=== PATIENT | female | born 1950 | race Two or more races ===

== ENCOUNTER 2024-11-20 10:48 | Inpatient (IN) | payer OTHER ==
[~2024-11-20] VITALS: Ht 154.9 cm; Wt 49.0 kg
--- NOTE | 2024-11-20 11:32 | ED.PDOC ---
HPI (NEURO) HPI Comments This is a 74 year old female BIB son presenting to the ED with chief complaint of dizziness. Son reports that the patient has been experiencing dizziness since Sunday, worsening over time. Son relays that the patient called her PCP today and was advised to come to the ED to rule out CVA due to having previous history of 2 of them. Patient denies any numbness, weakness, tingling, headache, chest pain, SOB, or N/V at this time. Chief Complaint: Dizziness Time Seen by MD: 11:31 Reviewed Notes: Nurses Notes, Medications, Allergies Information Source: Patient Mode of Arrival: Ambulatory Severity: Moderate Dizziness/Weakness Severity: Unable to do activities Headache Severity: None Timing: Days Duration: Since onset Prehospital treatment: None Onset: At rest Circumstances: Spontaneous Symptoms: Vertigo After: Normal Mentation History of: CVA Modifying factors: Nothing Past Medical History PAST MEDICAL HISTORY: CVA (with left sided deficits), DM, High Lipids, HTN Surgical History: Denies all surgeries [facility] History: Denies all [facility]OSP[facility] Hx Family History Family History: Reviewed,noncontributory to illness Social History Smoker: Non-Smoker Alcohol: Denies ETOH Use Drugs: Denies Drug Use Lives In: Home Constitutional: denies: chills, diaphoresis, fatigue, fever, malaise, sweats, weakness, others EENTM: denies: blurred vision, double vision, ear bleeding, ear discharge, ear drainage, ear pain, ear ringing, eye pain, eye redness, hearing loss, mouth pain, mouth swelling, nasal discharge, nose bleeding, nose congestion, nose pain, photophobia, tearing, throat pain, throat swelling, voice changes, others Respiratory: denies: cough, hemoptysis, orthopnea, SOB at rest, shortness of breath, SOB with excertion, stridor, wheezing, others Cardiovascular: denies: chest pain, dizzy spells, diaphoresis, Dyspnea on exertion, edema, irregular heart beat, left arm pain, lightheadedness, palpitations, PND, syncope, others Gastrointestinal: denies: abdomen distended, abdominal pain, blood streaked bowels, constipated, diarrhea, dysphagia, difficulty swallowing, hematemesis, melena, nausea, poor appetite, poor fluid intake, rectal bleeding, rectal pain, vomiting, others Genitourinary: denies: abnormal vagina bleeding, burning, dyspareunia, dysuria, flank pain, frequency, hematuria, incontinence, pain, , vagina discharge, urgency, others Neurological: reports: dizziness; denies: fainting, headache, left sided numbness, left sided weakness, numbness, paresthesia, pre-existing deficit, right sided numbness, right sided weakness, seizure, speech problems, tingling, tremors, weakness, others Musculoskeletal: denies: back pain, gout, joint pain, joint swelling, muscle pain, muscle stiffness, neck pain, others Integumetry: denies: bruises, change in color, change in hair/nails, dryness, laceration, lesions, lumps, rash, wounds, others Allergic/Immunocompromised: denies: Difficulty Healing, Frequent Infections, Hives, Itching, others Hematologic/Lymphatic: denies: anemia, blood clots, easy bleeding, easy bruising, swollen glands, others Endocrine: denies: excessive hunger, excessive sweating, excessive thirst, excessive urination, flushing, intolerance to cold, intolerance to heat, unexplained weight gain, unexplained weight loss, others Psychiatric: denies: anxiety, bipolar disorder, depression, hopeless, panic disorder, schizophrenia, sleepless, suicidal, others All Other Systems: Reviewed and Negative Physical Exam General Appearance: Moderate Distress HEENT: Normal ENT Inspection, Pharynx Normal, TMs Normal Neck: Full Range of Motion, Non-Tender, Normal, Normal Inspection Respiratory: Chest Non-Tender, Lungs Clear, No Accessory Muscle Use, No Respiratory Distress, Normal Breath Sounds Cardiovascular: No Edema, No JVD, No Murmur, No Gallop, Normal Peripheral Pulses, Regular Rate/Rhythm Breast Exam: Deferred Gastrointestinal: No Organomegaly, Non Tender, No Pulsatile Mass, Normal Bowel Sounds, Soft Genitalia: Deferred Pelvic: Deferred Rectal: Deferred Extremities: No calf tenderness, Normal capillary refill, Normal inspection, Normal range of motion, Non-tender, No pedal edema Musculoskeletal : Apperance: Normal Neurologic: Alert, commercial photographer II-XII nml as Tested, Facial Droop (Left-sided facial droop but may be from previous CVA), No Motor Deficits, Normal Affect, Normal Mood, No Sensory Deficits Cerebellar Function: Normal Reflexes: Normal Skin: Dry, Normal Color, Warm Lymphatic: No Adenopathy EKG EKG : Pulse Rate (adult): 63 [place]: Normal Cardiac Rhythm: NSR Block: None ST: Nonsp Was a procedure done? Was a procedure done?: No Differential Diagnosis (SZ) Seizure: Alcohol Withdrawl, Closed Head Injury, CVA/TIA, Idiopathic, Meningitis, Syncope X-Ray, Labs, Meds, VS Vital Signs Date Time Temp Pulse Resp B/P (MAP) Pulse Ox O2 Delivery O2 Flow Rate FiO2 11/20/24 10:57 63 11/20/24 10:49 97.4 66 18 150/73 96 97.4 Lab Test 11/20/24 14:41 11/20/24 11:39 Range/Units Urine Color Light-yellow Yellow Urine Clarity Clear Clear Urine pH 6.0 5.0-9.0 Urine Specific [place] 1.013 1.001-1.035 Urine Protein Negative Negative Urine Ketones Trace Negative Urine Blood Negative Negative /uL Urine Nitrite Negative Negative Urine Bilirubin Negative Negative Urine Urobilinogen Normal Negative mg/dL Urine Leukocyte Esterase Negative Negative /uL Urine RBC 2 0 - 4 /hpf Urine Microscopic WBC < 1 0-5 /HPF Urine Squamous Epithelial Cells Few <5 /hpf Urine Bacteria None seen None Seen /hpf Urine Glucose Normal Normal mg/dL White Blood Count 5.9 4.4-10.8 10^3/uL Red Blood Count 4.52 4.0-5.20 10^6/uL Hemoglobin 14.0 12.2-16.2 g/dL Hematocrit 40.7 36.0-46.0 % Mean Corpuscular Volume 90.0 80.0-100.0 fL Mean Corpuscular Hemoglobin 30.9 28.0-32.0 pg Mean Corpuscular Hemoglobin Concent 34.4 32.0-36.0 g/dL Red Cell Distribution Width 12.5 11.8-14.3 % Platelet Count 255 140-450 10^3/uL Mean Platelet Volume 8.6 6.9-10.8 fL Neutrophils (%) (Auto) 61.5 37.0-80.0 % Lymphocytes (%) (Auto) 31.2 10.0-50.0 % Monocytes (%) (Auto) 6.2 0.0-12.0 % Eosinophils (%) (Auto) 0.7 0.0-7.0 % Basophils (%) (Auto) 0.4 0.0-2.0 % Neutrophils # (Auto) 3.6 1.6-8.6 10 ^3/uL Lymphocytes # (Auto) 1.8 0.4-5.4 10 ^3/uL Monocytes # (Auto) 0.4 0-1.3 10 ^3/uL Eosinophils # (Auto) 0 0-0.8 10 ^3/uL Basophils # (Auto) 0 0-0.2 10 ^3/uL Nucleated Red Blood Cells 0.1 % Sodium Level 145 136-145 mmol/L Potassium Level 3.3 L 3.5-5.1 mmol/L Chloride Level 107 98-107 mmol/L Carbon Dioxide Level 29 20-31 mmol/L Anion Gap 9 5-15 Blood Urea Nitrogen 6 L 9-23 mg/dL Creatinine 0.63 0.550-1.02 mg/dL Glomerular Filtration Rate Calc 94 >90 mL/min BUN/Creatinine Ratio 9.5 L 10.0-20.0 Serum Glucose 96 74-106 mg/dL Calcium Level 9.1 8.7-10.4 mg/dL CT Head indicates: 1. No CT evidence of an acute intracranial abnormality. IV Hep-Lock was established The urine test is negative The CBC and chemistry panel are within normal limits except for hypokalemia at 3.3 The patient is being admitted at this time. A neurology consult will be obtained Medical decision making was made because the patient is having persistent weak ness and numbness on the left side. The patient will be admitted at this time the Images Reviewed?: Images reviewed and evaluated by me Time of 1ST Reevaluation: 15:29 Reevaluation 1ST: Unchanged Patient Education/Counseling: Diagnosis, Treatment, Prognosis Family Education/Counseling: Diagnosis, Treatment, Prognosis Departure 1 Departure Time of Disposition: 15:28 Impression: Primary Impression: Left sided numbness Additional Impression: Autonomic dysfunction Disposition: 09 ADMITTED INPATIENT Admit to: Tele Condition: Fair Critical Care Note Critical Care Time?: Yes (55 min-critical care time only) Stability Stability form required: Yes Unstable for transfer: Telemetry monitoring (Telemetry monitoring required), ED Physician Assesment (Clinical assesment) Heart Score Heart Score: Heart Score Response (Comments) Value History N/A 0 EKG N/A 0 Age N/A 0 Risk Factors N/A 0 Troponin N/A 0 Total 0 I personally scribed for MILTON VALDOVINOS MD ([email or web address]) on 11/20/24 at 11:32. Electronically submitted by Isaías Alvares ([email or web address]). I personally scribed for MITLON VALDOVINOS MD ([email or web address]) on 11/20/24 at 12:43. Electronically submitted by Isaías Alvares ([email or web address]). MILTON VALDOVINOS MD Nov 20, 2024 11:32
[2024-11-20 12:10] LABS: Hematocrit 40.7 % (36.0-46.0); Hemoglobin 14.0 g/dL (12.2-16.2); Mean Corpuscular Hemoglobin 30.9 pg (28.0-32.0); Mean Corpuscular Volume 90.0 fL (80.0-100.0); Nucleated Red Blood Cells % 0.1 %
[2024-11-20 12:26] LABS: Sodium 145 mmol/L (136-145)
[2024-11-20 12:27] LABS: Anion Gap 9 (5-15); Calcium 9.1 mg/dL (8.7-10.4); Carbon Dioxide 29 mmol/L (20-31); Chloride 107 mmol/L (98-107); Potassium 3.3 mmol/L (3.5-5.1)
[2024-11-20 12:32] LABS: BUN/Creatinine Ratio 9.5 (10.0-20.0); Glucose 96 mg/dL (74-106)
[2024-11-20 12:34] LABS: Blood Urea Nitrogen 6 mg/dL (9-23)
--- NOTE | 2024-11-20 12:36 | DVH ---
EXAM: CT HEAD WITHOUT CONTRAST INDICATION: right sided weakness TECHNIQUE: CT images of the head were obtained without administration of IV contrast. CT scans at [facility] facility use dose modulation, iterative reconstruction, and/or weight based dosing when appropriate to reduce radiation dose to as low as reasonably achievable. COMPARISON: None FINDINGS: PARENCHYMA: No acute hemorrhage. There is no mass effect, midline shift, or herniation. There is pres ervation of the padilla white differentiation. Mild scattered hypoattenuation along the periventricular, centrum semiovale, and deep white matter tracts, which are nonspecific however statistically most li keith represent chronic microvascular ischemic change. VENTRICLES: No hydrocephalus. EXTRA-AXIAL SPACES: No extra-axial fluid collections. OTHER: The bony structures are intact. Visualized portions of the paranasal sinuses and mastoid air cells are clear. IMPRESSION: 1. No CT evidence of an acute intracranial abnormality.
--- NOTE | 2024-11-20 12:40 | ECG ---
[facility] Test Date: 2024-11-20 Test Time: 10:57:53 Pat Name: WINNIE ARMSTRONG Department: ED Room: [facility]T Gender: F Recreation Activities Coordinator: DR MCHUGH: 1950 Requested By: MILTON VALDOVINOS Order Number: [id number] Reading MD: José Siddiqui Measurements Intervals [place] Rate: 63 P: 36 OK: 194 QRS: 27 QRSD: 128 T: 25 QT: 441 QTc: 452 Interpretive Statements Sinus rhythm Nonspecific intraventricular conduction delay Electronically Signed On 11-25-2024 19:16:29 PDT by José Siddiqui Please click the below link to view image of tracing.
[2024-11-20 14:53] LABS: Urine Protein, UAD Negative (Negative)
[2024-11-20] MEDS ORDERED: MECLIZINE HCL 25 MG TAB PO PRN (16:15)
[2024-11-20] MEDS ORDERED: NITROGLYCERIN 0.4 MG SL TAB SL PRN (16:15)
[2024-11-20] MEDS ORDERED: DEXTROSE (50%) 50ML SYRG IV PRN (16:15)
--- NOTE | 2024-11-20 16:25 | DVHHP2 ---
History of Present Illness Reason for Visit: Dizziness History of Present Illness 74-year-old female past medical history stroke 10 years ago she has left facial droop and left-sided weakness which is chronic diabetes hyperlipidemia hypertension no surgical history she is here with the son she is Persian speaking her son spoke in her behalf Malachi [phone] chief complaint patient son states mom has some dizziness has been going on since Sunday it was worse today so she called her primary doctor and they requested that she come for evaluation to make sure she did not having mother stroke due to her symptoms patient states the dizziness comes and goes is worse when she is lying down or get from a sitting to a standing position she also complains of some nausea and she does have some chest pain on her left chest wall nothing makes her symptoms better moving mostly makes her symptoms worse she has no noticeable weakness per son the current weakness to her left side is from a stroke 10 years prior and also the facial droop was normal for her from her prior stroke. When evaluating patient's labs and imaging CBC was unremarkable potassium was 3.[address] scan of the brain was unremarkable with these findings we will admit patient for further workup and care ask for Neurology evaluation Past Medical History See HPI above Past Surgical History See HPI above Family History Reviewed, non-contributory to the management of this case. Past Social History The patient lives at home, denies smoking, alcohol or illicit drugs abuse. Review of Systems Constitutional: No: Fever, Chills, Sweats, Weakness, Malaise, Other Eyes: No: Pain, Vision change, Conjunctivae inflammation, Eyelid inflammation, Other, Redness ENT: No: Ear pain, Ear discharge, Nose pain, Nose discharge, Nose congestion, Mouth pain, Mouth swelling, Throat pain, Throat swelling, Other Respiratory: No: Cough, Dry, Shortness of breath, SOB with excertion, Wheezing, Hemoptysis, Pleuritic Pain, Sputum, Wheezing, Other Cardiovascular: No: Chest Pain, Palpitations, Orthopnea, Paroxysmal Noc. Dyspnea, Edema, Lt Headedness, Other Gastrointestinal: No: Nausea, Vomiting, Abdominal Pain, Diarrhea, Constipation, Melena, Hematochezia, Other Genitourinary: No Dysuria, No Frequency, No Incontinence, No Hematuria, No Retention, No Other Musculoskeletal: No: other, neck pain, shoulder pain, arm pain, back pain, hand pain, leg pain, foot pain Skin: No: Rash, Lesions, Jaundice, Bruising, Other Neurological: Other (Dizziness); No: Weakness, Numbness, Incoordination, Change in speech, Confusion, Seizures Allergies: Coded Allergies: NO KNOWN ALLERGIES (Unverified , 11/20/24) Exam Vital Signs Vital Signs Date Time Temp Pulse Resp B/P (MAP) Pulse Ox O2 Delivery O2 Flow Rate FiO2 11/20/24 15:32 63 11/20/24 10:49 97.4 18 150/73 96 97.4 General Appearance: Alert, Oriented X3, Cooperative, No acute distress HEENT: Atraumatic, Mucous membr. moist/pink, Other (Noticeable left facial droop son since normal for patient) Respiratory: Clear to auscultation, Normal air movement Cardiovascular: Regular rate, Normal S1, Normal S2, No murmurs Abdominal: Normal bowel sounds, Soft, No tenderness, No hepatospenomegaly, No masses Extremities: No clubbing, No cyanosis, No edema, Normal pulses, No tenderness/swelling Skin: No rashes, No breakdown, No significant lesion Neuro: Normal gait, Normal speech, Strength at 5/5 X4 ext, Normal tone, Se nsation intact, Other (Mild left-sided weakness likely from prior stroke) Psych/Mental Status: Mental status NL, Mood NL Labs/Xrays CT scan of the brain unremarkable I reviewed labs, imaging CT scan abdomen pelvis, EKG and all diagnostic studies on this patient from ED records and the medical chart Labs Test 11/20/24 14:41 11/20/24 11:39 Range/Units Urine Color Light-yellow Yellow Urine Clarity Clear Clear Urine pH 6.0 5.0-9.0 Urine Specific [place] 1.013 1.001-1.035 Urine Protein Negative Negative Urine Ketones Trace Negative Urine Blood Negative Negative /uL Urine Nitrite Negative Negative Urine Bilirubin Negative Negative Urine Urobilinogen Normal Negative mg/dL Urine Leukocyte Esterase Negative Negative /uL Urine RBC 2 0 - 4 /hpf Urine Microscopic WBC < 1 0-5 /HPF Urine Squamous Epithelial Cells Few <5 /hpf Urine Bacteria None seen None Seen /hpf Urine Glucose Normal Normal mg/dL White Blood Count 5.9 4.4-10.8 10^3/uL Red Blood Count 4.52 4.0-5.20 10^6/uL Hemoglobin 14.0 12.2-16.2 g/dL Hematocrit 40.7 36.0-46.0 % Mean Corpuscular Volume 90.0 80.0-100.0 fL Mean Corpuscular Hemoglobin 30.9 28.0-32.0 pg Mean Corpuscular Hemoglobin Concent 34.4 32.0-36.0 g/dL Red Cell Distribution Width 12.5 11.8-14.3 % Platelet Count 255 140-450 10^3/uL Mean Platelet Volume 8.6 6.9-10.8 fL Neutrophils (%) (Auto) 61.5 37.0-80.0 % Lymphocytes (%) (Auto) 31.2 10.0-50.0 % Monocytes (%) (Auto) 6.2 0.0-12.0 % Eosinophils (%) (Auto) 0.7 0.0-7.0 % Basophils (%) (Auto) 0.4 0.0-2.0 % Neutrophils # (Auto) 3.6 1.6-8.6 10 ^3/uL Lymphocytes # (Auto) 1.8 0.4-5.4 10 ^3/uL Monocytes # (Auto) 0.4 0-1.3 10 ^3/uL Eosinophils # (Auto) 0 0-0.8 10 ^3/uL Basophils # (Auto) 0 0-0.2 10 ^3/uL Nucleated Red Blood Cells 0.1 % Sodium Level 145 136-145 mmol/L Potassium Level 3.3 L 3.5-5.1 mmol/L Chloride Level 107 98-107 mmol/L Carbon Dioxide Level 29 20-31 mmol/L Anion Gap 9 5-15 Blood Urea Nitrogen 6 L 9-23 mg/dL Creatinine 0.63 0.550-1.02 mg/dL Glomerular Filtration Rate Calc 94 >90 mL/min BUN/Creatinine Ratio 9.5 L 10.0-20.0 Serum Glucose 96 74-106 mg/dL Calcium Level 9.1 8.7-10.4 mg/dL SEPSIS Sepsis Screen Date sepsis recognized/suspect: Nov 20, 2024 Time Sepsis recognized/suspect: 1050 Recent Procedure: No On Antibiotic Therapy: No Respiratory Rate >20: No Heart Rate >90: No Temp<36 C (96.8 F) or >38.3 C: No SBP <90 or MAP <65 mmHG: No New Acute Mental Status Change: No Is the patient on CPAP, BIPAP,: No Physician Orders Head Without Contrast (11/20/24 11:29) Vital Signs Date Time Temp Pulse Resp B/P (MAP) Pulse Ox O2 Delivery O2 Flow Rate FiO2 11/20/24 15:32 63 11/20/24 10:57 63 11/20/24 10:49 97.4 66 18 150/73 96 97.4 Laboratory Tests Test 11/20/24 11:39 White Blood Count 5.9 10^3/uL (4.4-10.8) Assessment/Plan Assessment/Plan Acute dizziness rule out stroke CT scan of the brain unremarkable Ordered neurology consult Stroke protocol and precautions PT OT eval and treat Cardiac diet con asa atorvastatin neuro checks q2h fall precautions oob to chair ordered Carotid Doppler study f/u results ordered Echo fu results Acute chest pain rule out ACS Order EKG follow up results Order troponin x3 follow up results Order aspirin and atorvastatin Order echocardiogram follow up results If abnormal consider Cards consult Order nitro and and morphine as needed for pain acute hypokalemia replete k ordered mag and phos fu results chronic problems cva left side facial droop and weakness dm ISS hld htn fen/ppx diet hl scd no gi ppx since no hx of gerds or gi bleed plan admit to tele cards consult fu results Plan discussed with: Patient Date of Service: Nov 20, 2024 Billing Provider: CARISSA BAIN DNP Common Visit Codes: [id number] INP/OBS CARE (HIGH) CARISSA BAIN DNP Nov 20, 2024 16:25
[2024-11-20 16:33] VITALS: PULSE 60; RESP 18; O2SAT 96
[2024-11-20] MEDS: InsuLIN REG 1unit/0.01ml Soln (100units/ml) SC SCH (17:00)
[2024-11-20] MEDS: ACCU-CHEK COMFORT CURVE STRIP VI SCH (17:00)
[2024-11-20 17:04] LABS: Magnesium 2.4 mg/dL (1.6-2.6)
[2024-11-20] MEDS: POTASSIUM EFFERVESENT TAB 25 MEQ PO ONE (17:05)
[2024-11-20 17:12] LABS: INR 0.94 (0.9-1.15); Prothrombin Time 10.0 sec (9.3-11.8)
--- NOTE | 2024-11-20 18:22 | DVH ---
CLINICAL HISTORY: eval for cardiac function and ef TECHNIQUE: Doll-scale, color and duplex doppler imaging of the bilateral carotid systems was performe d. COMPARISON: None Findings: Right carotid system: There is probable plaque present in the right carotid system. Left carotid system: There is plaque present in the left carotid system. The following flow velocities were obtained (Cm/sec). Right carotid System: ICA PSV: 147 Cm/sec ICA PDV: 41 Cm/sec ICA/CCA Ratio: 5.2 Left carotid System: ICA PSV: 84 Cm/sec ICA PDV: 28 Cm/sec ICA/CCA Ratio: 2.1 The right and left common carotid and external carotid arteries are patent. There is antegrade flow i n both vertebral arteries and external carotid arteries. IMPRESSION: 50-69% RIGHT ICA NARROWING. LESS THAN 50% LEFT ICA NARROWING. Estimation of carotid stenosis is based on velocity parameters that correlate the residual internal c arotid Diameter with that of the more distal vessel in accordance with the [place] symptomatic Carotid Endarterectomy trial (NASCET).
[2024-11-20] MEDS: SODIUM CHLORIDE 0.9% 1,000 ML IV SCH (18:31)
[2024-11-20] MEDS ORDERED: ASPI1TAB20 PO (23:39)
[2024-11-20] MEDS ORDERED: AML5T PO (23:39)
[2024-11-20] MEDS ORDERED: ATOR20TA50 PO (23:39)
[2024-11-21] VITALS (8 sets, daily range): BP systolic 100–152; BP diastolic 50–70; PULSE 55–68; RESP 16–17; TEMP 97.6–98.1; O2SAT 95–98
[2024-11-21] MEDS: ATORVASTATIN 20 MG TAB PO SCH (01:23)
--- NOTE | 2024-11-21 11:14 | DVHPN2 ---
Reviewed: Care Plan, H&P, Labs, Medications, Previous Orders, Radiology Changes from previous H/P or p: No Changes Eyes: No Pain, No Vision change, No Conjunctivae inflammation, No Eyelid inflammation, No Other, No Redness ENT: No Ear pain, No Ear discharge, No Nose pain, No Nose discharge, No Nose congestion, No Mouth pain, No Mouth swelling, No Throat pain, No Throat swelling, No Other Cardiovascular: No Chest Pain, No Palpitations, No Orthopnea, No Paroxysmal Noc. Dyspnea, No Edema, No Lt Headedness, No Other Respiratory: No Cough, No Dry, No Shortness of breath, No SOB with excertion, No Wheezing, No Hemoptysis, No Pleuritic Pain, No Sputum, No Other Gastrointestinal: No Nausea, No Vomiting, No Abdominal Pain, No Diarrhea, No Constipation, No Melena, No Hematochezia, No Other Genitourinary: No Dysuria, No Frequency, No Incontinence, No Hematuria, No Retention, No Other Musculoskeletal: No other, No neck pain, No shoulder pain, No arm pain, No back pain, No hand pain, No leg pain, No foot pain Skin: No Rash, No Lesions, No Jaundice, No Bruising, No Other Objective Vitals Vital Signs Date Time Temp Pulse Resp B/P (MAP) Pulse Ox O2 Delivery O2 Flow Rate FiO2 11/21/24 09:00 98.1 67 17 130/50 (76) 97 98.1 11/20/24 16:33 Room Air* 0 21 Intake/Output Intake and Output 11/21/24 07:00 Intake Total 0 ml Balance 0 ml Intake Oral 0 ml # Voids 3 Medications Current Medications Medications Dose Ordered Sig/Jaya Route Start Time Stop Time Status Last Admin Dose Admin Sodium Chloride 1,000 ml @ 70 mls/hr [id number] IV 11/20/24 16:15 11/21/24 06:27 70 MLS/HR Atorvastatin Calcium 20 mg HS PO 11/20/24 22:00 11/21/24 01:23 20 MG Aspirin 81 mg DAILY PO 11/21/24 10:00 Nitroglycerin 0.4 mg Q5MINP PRN SL 11/20/24 16:15 Meclizine HCl 25 mg Q8HPRN PRN PO 11/20/24 16:15 Diagnostic Test (Pha) 1 strip ACHS 11/20/24 17:00 11/21/24 06:27 1 STRIP Insulin Human Regular ACHS SC 11/20/24 17:00 Dextrose 50 ml UD PRN IV 11/20/24 16:15 Laboratory Results Laboratory Tests 11/20/24 11:39 Chemistry Test 11/20/24 11:39 Calcium Level 9.1 mg/dL (8.7-10.4) Magnesium Level 2.4 mg/dL (1.6-2.6) Phosphorus Level 2.9 mg/dL (2.4-5.1) Coagulation Test 11/20/24 11:39 Prothrombin Time 10.0 sec (9.3-11.8) Prothrombin Time INR 0.94 (0.9-1.15) Urinalysis Test 11/20/24 14:41 Urine Color Light-yellow (Yellow) Urine Clarity Clear (Clear) Urine pH 6.0 (5.0-9.0) Urine Specific [place] 1.013 (1.001-1.035) Urine Protein Negative (Negative) Urine Ketones Trace (Negative) Urine Blood Negative /uL (Negative) Urine Nitrite Negative (Negative) Urine Bilirubin Negative (Negative) Urine Urobilinogen Normal mg/dL (Negative) Urine Leukocyte Esterase Negative /uL (Negative) Urine RBC 2 /hpf (0 - 4) Urine Microscopic WBC < 1 /HPF (0-5) Urine Squamous Epithelial Cells Few /hpf (<5) Urine Bacteria None seen /hpf (None Seen) Urine Glucose Normal mg/dL (Normal) Labs and/or images reviewed: Labs reviewed by me, Image(s) reviewed by me Assessment/Plan Assessment/Plan Acute dizziness ruled out stroke: Neurology consult Acute chest pain rule out coronary artery disease Acute hypokalemia replace potassium History of CVA 10 years ago left-sided hemiplegia Diabetes Hypertension Hypercholesterolemia CT head negative 50-69 % right ICA stenosis: Cardiology consult Time Spent 55 minutes Advanced Care planning time 20 mts Patient is full code Plan discussed with: Patient Date of Service: Nov 21, 2024 Billing Provider: EDUARDO CESPEDES MD Common Visit Codes: [id number] INP/OBS CARE(HIGH) Secondary Visit Codes: [id number] CARE PLAN 30 MINUTES EDUARDO CESPEDES MD Nov 21, 2024 11:14
--- NOTE | 2024-11-21 12:57 | DVHINCON2 ---
Date Seen: Nov 21, 2024 Referring Physician MD Sameer Reason for Consultation 50-69% stenosis of right ICA History of Present Illness This is a Bengali speaking 74-year-old female patient who presents to the emergency room with chief complaint of dizziness for one week. The patient is primarily Bengali speaking and a alternative energy technician was used to interpret (ID [id number]). The patient reports symptoms began approximately one week ago. The patient reports a previous history of CVA which prompted her to come to the emergency room for further evaluation. She denies any syncopal episodes. Initial twelve lead electrocardiogram reveals normal sinus rhythm. Serial troponin levels have been negative. The patient denies any cardiac symptoms. Significant past medical history includes hypertension, dyslipidemia, CVA x2 with left-sided deficit, Beltrán's palsy, and hard of hearing. 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 Merchant in [place], [place]. Past Medical History Past medical history reviewed. No other significant than mentioned above. Past Surgical History Denies any previous surgeries Family History: Patient reports no known family medical history. Family History Family history reviewed. Social History Denies the use of tobacco, alcohol or illicit drugs. Allergies: Coded Allergies: NO KNOWN ALLERGIES (Unverified , 11/20/24) Home Meds Reported Medications Aspirin (Aspir-81) 81 Mg Tab, 1 TAB PO DAILY, #30 TAB 5 Refills 11/20/24 Amlodipine Besylate (NORVASC TABLET) 5 Mg Tb, 1 TAB PO DAILY, #30 TAB 5 Refills 11/20/24 Atorvastatin Calcium (ATORVASTATIN CALCIUM) 20 Mg Tab, 1 TAB PO DAILY, #30 TAB 5 Refills 11/20/24 Home Meds Home medications reviewed. Current Medications Current Medications Medications (Trade) Dose Ordered Sig/Jaya Route PRN Reason Start Time Stop Time Status Last Admin Sodium Chloride 1,000 ml @ 70 mls/hr [id number] IV 11/20/24 16:15 11/21/24 06:27 Atorvastatin Calcium (Lipitor) 20 mg HS PO 11/20/24 22:00 11/21/24 01:23 Aspirin 81 mg DAILY PO 11/21/24 10:00 11/21/24 11:36 Nitroglycerin (Ntrostat Sublingual) 0.4 mg Q5MINP PRN SL FOR CHEST PAIN 11/20/24 16:15 Meclizine HCl (Antivert Tablet) 25 mg Q8HPRN PRN PO DIZZINESS 11/20/24 16:15 Diagnostic Test (Pha) (Accu-Chek Comfort Curve T) 1 strip ACHS 11/20/24 17:00 11/21/24 11:39 Insulin Human Regular (InsuLIN R) ACHS SC 11/20/24 17:00 Dextrose 50 ml UD PRN IV Blood Sugar LESS THAN 60 11/20/24 16:15 Review of Systems Constitutional: No symptom reported Ears, Nose, & Throat: No symptom reported Eyes: No symptom reported Neurological: Dizziness Pulmonary/Respiratory: No symptoms reported Cardiovascular: No symptom reported Gastrointestinal: No symptom reported Genitourinary: No symptom reported Musculoskeletal: No symptom reported Skin: No symptom reported Psychiatric: No symptom reported Endocrine: No symptom reported Hematologic/Lymphatic: No symptom reported Vital Signs Vital Signs Date Time Temp Pulse Resp B/P (MAP) Pulse Ox O2 Delivery O2 Flow Rate FiO2 11/21/24 09:00 98.1 67 17 130/50 (76) 97 98.1 11/20/24 16:33 Room Air* 0 21 Physical Exam General Appearance: Cooperative. Well-developed. Well-nourished. No acute distress. Pulmonary/Respiratory: Clear, bilateral breaths sounds. Cardiovascular/Chest: Regular rate and rhythm. Peripheral Pulses: 2+ Radial (R). 2+ Radial (L). 2+ Pedal (R). 2+ Pedal (L) Abdominal Exam: Normal bowel sounds. Ankle Exam: Negative ankle edema Lower extremities: Negative lower extremity edema Neuro/Mental Status: A/OX4, coherent. Thoughts/Psych: Normal thought pattern. Appropriate mood and affect. Good j udgment and insight. Appearance: No acute distress. Skin Exam: Normal inspection. Normal color. Warm and dry. Labs/Diagnostic Data Labs Test 11/21/24 06:26 11/20/24 20:17 11/20/24 14:41 11/20/24 11:39 Range/Units POC Glucose 89 70-106 mg/dl Troponin I High Sensitivity 3 L </=34 ng/L Urine Color Light-yellow Yellow Urine Clarity Clear Clear Urine pH 6.0 5.0-9.0 Urine Specific [place] 1.013 1.001-1.035 Urine Protein Negative Negative Urine Ketones Trace Negative Urine Blood Negative Negative /uL Urine Nitrite Negative Negative Urine Bilirubin Negative Negative Urine Urobilinogen Normal Negative mg/dL Urine Leukocyte Esterase Negative Negative /uL Urine RBC 2 0 - 4 /hpf Urine Microscopic WBC < 1 0-5 /HPF Urine Squamous Epithelial Cells Few <5 /hpf Urine Bacteria None seen None Seen /hpf Urine Glucose Normal Normal mg/dL White Blood Count 5.9 4.4-10.8 10^3/uL Red Blood Count 4.52 4.0-5.20 10^6/uL Hemoglobin 14.0 12.2-16.2 g/dL Hematocrit 40.7 36.0-46.0 % Mean Corpuscular Volume 90.0 80.0-100.0 fL Mean Corpuscular Hemoglobin 30.9 28.0-32.0 pg Mean Corpuscular Hemoglobin Concent 34.4 32.0-36.0 g/dL Red Cell Distribution Width 12.5 11.8-14.3 % Platelet Count 255 140-450 10^3/uL Mean Platelet Volume 8.6 6.9-10.8 fL Neutrophils (%) (Auto) 61.5 37.0-80.0 % Lymphocytes (%) (Auto) 31.2 10.0-50.0 % Monocytes (%) (Auto) 6.2 0.0-12.0 % Eosinophils (%) (Auto) 0.7 0.0-7.0 % Basophils (%) (Auto) 0.4 0.0-2.0 % Neutrophils # (Auto) 3.6 1.6-8.6 10 ^3/uL Lymphocytes # (Auto) 1.8 0.4-5.4 10 ^3/uL Monocytes # (Auto) 0.4 0-1.3 10 ^3/uL Eosinophils # (Auto) 0 0-0.8 10 ^3/uL Basophils # (Auto) 0 0-0.2 10 ^3/uL Nucleated Red Blood Cells 0.1 % Prothrombin Time 10.0 9.3-11.8 sec Prothrombin Time INR 0.94 0.9-1.15 Sodium Level 145 136-145 mmol/L Potassium Level 3.3 L 3.5-5.1 mmol/L Chloride Level 107 98-107 mmol/L Carbon Dioxide Level 29 20-31 mmol/L Anion Gap 9 5-15 Blood Urea Nitrogen 6 L 9-23 mg/dL Creatinine 0.63 0.550-1.02 mg/dL Glomerular Filtration Rate Calc 94 >90 mL/min BUN/Creatinine Ratio 9.5 L 10.0-20.0 Serum Glucose 96 74-106 mg/dL Calcium Level 9.1 8.7-10.4 mg/dL Phosphorus Level 2.9 2.4-5.1 mg/dL Magnesium Level 2.4 1.6-2.6 mg/dL Assessment Right ICA narrowing 50-69% Rule out structural heart disease Vertigo, rule out TIA vs CVA Hypertension Dyslipidemia Hypokalemia 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 Siddiqui): Case discussed with Dr. Siddiqui. Carotid Doppler imaging reviewed. Patient noted to have 50-69% right ICA narrowing. Currently pending neurological consultation to assess for TIA versus CVA. In the setting of acute CVA, it is recommended to postpone carotid intervention for at least one month. At this time narrowing is less than 70%, no urgent indication for carotid angioplasty. Continue with lipid-lowering agent and single antiplatelet therapy. Continue with blood p ressure control and close cardiac surveillance. Further recommendations per clinical course and progression. Thank you for allowing us to care for this patient. Please call with any questions or concerns. Critical care time spent: 44 minutes This medical document was created using an electronic medical record system with voice recognition software and computerized dictation system. Although this document has been carefully reviewed, there might still be some phonetic and typographical errors. Occasional wrong-word or ``sound-alike substitutions may have occurred due to the inherent limitations of voice recognition software. These areas are purely typographical due to imperfections of the software programs and do not reflect any compromise in the patient's medical care. Please read the chart carefully and recognize, using context, where these substitutions have occurred. Plan discussed with: Patient, Spouse NYHA Physical activity limitations: NA Date of Service: Nov 21, 2024 Billing Provider: SILKE ROD Cardiology Common Codes: [id number] INP/OBS CARE (High) Cardiology Consultation Codes: [id number] CONSULT <45MIN SILKE ROD Nov 21, 2024 12:56
[2024-11-21 13:39] LABS: Triglycerides 80.0 mg/dL (< 150)
[2024-11-21 13:40] LABS: Magnesium 2.5 mg/dL (1.6-2.6)
[2024-11-21 13:41] LABS: Cholesterol 120.0 mg/dL (< 200); HDL Cholesterol 53.0 mg/dL (40-59)
[2024-11-22] VITALS (9 sets, daily range): BP systolic 111–130; BP diastolic 61–75; PULSE 56–71; RESP 16–18; TEMP 97.6–98; O2SAT 95–100
--- NOTE | 2024-11-22 10:37 | DVHPN2 ---
Reviewed: Care Plan, H&P, Labs, Medications, Previous Orders, Radiology Changes from previous H/P or p: No Changes Eyes: No Pain, No Vision change, No Conjunctivae inflammation, No Eyelid inflammation, No Other, No Redness ENT: No Ear pain, No Ear discharge, No Nose pain, No Nose discharge, No Nose congestion, No Mouth pain, No Mouth swelling, No Throat pain, No Throat swelling, No Other Cardiovascular: No Chest Pain, No Palpitations, No Orthopnea, No Paroxysmal Noc. Dyspnea, No Edema, No Lt Headedness, No Other Respiratory: No Cough, No Dry, No Shortness of breath, No SOB with excertion, No Wheezing, No Hemoptysis, No Pleuritic Pain, No Sputum, No Other Gastrointestinal: No Nausea, No Vomiting, No Abdominal Pain, No Diarrhea, No Constipation, No Melena, No Hematochezia, No Other Genitourinary: No Dysuria, No Frequency, No Incontinence, No Hematuria, No Retention, No Other Musculoskeletal: No other, No neck pain, No shoulder pain, No arm pain, No back pain, No hand pain, No leg pain, No foot pain Skin: No Rash, No Lesions, No Jaundice, No Bruising, No Other Objective Vitals Vital Signs Date Time Temp Pulse Resp B/P (MAP) Pulse Ox O2 Delivery O2 Flow Rate FiO2 11/22/24 08:15 Room Air* 0 21 11/22/24 08:05 97.9 61 17 121/75 (90) 97 97.9 Intake/Output Intake and Output 11/22/24 07:00 Intake Total 1000 ml Balance 1000 ml Intake Oral 1000 ml # Voids 3 # Bowel Movements 1 Medications Current Medications Medications Dose Ordered Sig/Jaya Route Start Time Stop Time Status Last Admin Dose Admin Sodium Chloride 1,000 ml @ 70 mls/hr [id number] IV 11/20/24 16:15 11/21/24 21:01 70 MLS/HR Atorvastatin Calcium 20 mg HS PO 11/20/24 22:00 11/21/24 21:01 20 MG Aspirin 81 mg DAILY PO 11/21/24 10:00 11/22/24 10:23 81 MG Nitroglycerin 0.4 mg Q5MINP PRN SL 11/20/24 16:15 Meclizine HCl 25 mg Q8HPRN PRN PO 11/20/24 16:15 Diagnostic Test (Pha) 1 strip ACHS 11/20/24 17:00 11/22/24 05:58 1 STRIP Insulin Human Regular ACHS SC 11/20/24 17:00 Dextrose 50 ml UD PRN IV 11/20/24 16:15 Laboratory Results Laboratory Tests 11/20/24 11:39 Chemistry Test 11/21/24 13:07 Magnesium Level 2.5 mg/dL (1.6-2.6) Lipid panel Test 11/21/24 13:07 Cholesterol Level 120 mg/dL (< 200) HDL Cholesterol 53 mg/dL (40-59) Triglycerides Level 80 mg/dL (< 150) HgA1c, TSH Test 11/21/24 13:07 Hemoglobin A1c 5.4 % A1C (<5.7) Thyroid Stimulating Hormone (TSH) 1.51 uIU/mL (0.55-4.78) Urinalysis Test 11/20/24 14:41 Urine Color Light-yellow (Yellow) Urine Clarity Clear (Clear) Urine pH 6.0 (5.0-9.0) Urine Specific [place] 1.013 (1.001-1.035) Urine Protein Negative (Negative) Urine Ketones Trace (Negative) Urine Blood Negative /uL (Negative) Urine Nitrite Negative (Negative) Urine Bilirubin Negative (Negative) Urine Urobilinogen Normal mg/dL (Negative) Urine Leukocyte Esterase Negative /uL (Negative) Urine RBC 2 /hpf (0 - 4) Urine Microscopic WBC < 1 /HPF (0-5) Urine Squamous Epithelial Cells Few /hpf (<5) Urine Bacteria None seen /hpf (None Seen) Urine Glucose Normal mg/dL (Normal) Labs and/or images reviewed: Labs reviewed by me, Image(s) reviewed by me Assessment/Plan Assessment/Plan Acute dizziness rule out stroke versus TIA: Neurology consult for Dr. Briggs pending Acute chest pain rule out coronary artery disease Acute hypokalemia replace potassium History of CVA 10 years ago left-sided hemiplegia Diabetes Hypertension Hypercholesterolemia CT head negative 50-69 % right ICA stenosis: Cardiology consult Dr. Siddiqui appreciated, advised conservative management in the setting of possible TIA/ CVA Time Spent 55 minutes Advanced Care planning time 20 mts Patient is full code Plan discussed with: Patient My Orders Orders - EDUARDO CESPEDES MD Procedure Category Date Status Time * Cardiology Consult CONS 11/21/24 Transmitted 11:22 Date of Service: Nov 22, 2024 Billing Provider: EDUARDO CESPEDES MD Common Visit Codes: [id number] INP/OBS CARE(HIGH) EDUARDO CESPEDES MD Nov 22, 2024 10:37
[2024-11-23] VITALS (8 sets, daily range): BP systolic 116–144; BP diastolic 49–78; PULSE 55–66; RESP 12–20; TEMP 97.7–98.2; O2SAT 92–98
--- NOTE | 2024-11-23 12:20 | DVHPN2 ---
Reviewed: Care Plan, H&P, Labs, Medications, Previous Orders, Radiology Changes from previous H/P or p: No Changes Eyes: No Pain, No Vision change, No Conjunctivae inflammation, No Eyelid inflammation, No Other, No Redness ENT: No Ear pain, No Ear discharge, No Nose pain, No Nose discharge, No Nose congestion, No Mouth pain, No Mouth swelling, No Throat pain, No Throat swelling, No Other Cardiovascular: No Chest Pain, No Palpitations, No Orthopnea, No Paroxysmal Noc. Dyspnea, No Edema, No Lt Headedness, No Other Respiratory: No Cough, No Dry, No Shortness of breath, No SOB with excertion, No Wheezing, No Hemoptysis, No Pleuritic Pain, No Sputum, No Other Gastrointestinal: No Nausea, No Vomiting, No Abdominal Pain, No Diarrhea, No Constipation, No Melena, No Hematochezia, No Other Genitourinary: No Dysuria, No Frequency, No Incontinence, No Hematuria, No Retention, No Other Musculoskeletal: No other, No neck pain, No shoulder pain, No arm pain, No back pain, No hand pain, No leg pain, No foot pain Skin: No Rash, No Lesions, No Jaundice, No Bruising, No Other Objective Vitals Vital Signs Date Time Temp Pulse Resp B/P (MAP) Pulse Ox O2 Delivery O2 Flow Rate FiO2 11/23/24 08:47 97.8 63 20 130/67 (88) 97 97.8 11/23/24 08:11 Room Air* 0 21 Intake/Output Intake and Output 11/23/24 07:00 Intake Total 1350 ml Output Total 1000 ml Balance 350 ml Intake Oral 1350 ml Output Urine Total 1000 ml # Bowel Movements 2 Medications Current Medications Medications Dose Ordered Sig/Jaya Route Start Time Stop Time Status Last Admin Dose Admin Sodium Chloride 1,000 ml @ 70 mls/hr [id number] IV 11/20/24 16:15 11/23/24 01:27 70 MLS/HR Atorvastatin Calcium 20 mg HS PO 11/20/24 22:00 11/22/24 21:02 20 MG Aspirin 81 mg DAILY PO 11/21/24 10:00 11/23/24 10:39 81 MG Nitroglycerin 0.4 mg Q5MINP PRN SL 11/20/24 16:15 Meclizine HCl 25 mg Q8HPRN PRN PO 11/20/24 16:15 Diagnostic Test (Pha) 1 strip ACHS 11/20/24 17:00 11/23/24 11:30 1 STRIP Insulin Human Regular ACHS SC 11/20/24 17:00 Dextrose 50 ml UD PRN IV 11/20/24 16:15 Laboratory Results Laboratory Tests 11/20/24 11:39 Urinalysis Test 11/20/24 14:41 Urine Color Light-yellow (Yellow) Urine Clarity Clear (Clear) Urine pH 6.0 (5.0-9.0) Urine Specific [place] 1.013 (1.001-1.035) Urine Protein Negative (Negative) Urine Ketones Trace (Negative) Urine Blood Negative /uL (Negative) Urine Nitrite Negative (Negative) Urine Bilirubin Negative (Negative) Urine Urobilinogen Normal mg/dL (Negative) Urine Leukocyte Esterase Negative /uL (Negative) Urine RBC 2 /hpf (0 - 4) Urine Microscopic WBC < 1 /HPF (0-5) Urine Squamous Epithelial Cells Few /hpf (<5) Urine Bacteria None seen /hpf (None Seen) Urine Glucose Normal mg/dL (Normal) Labs and/or images reviewed: Labs reviewed by me, Image(s) reviewed by me Assessment/Plan Assessment/Plan Acute dizziness rule out stroke versus TIA: Neurology consult for Dr. Briggs pending Acute chest pain rule out coronary artery disease Acute hypokalemia replace potassium History of CVA 10 years ago left-sided hemiplegia Diabetes Hypertension Hypercholesterolemia CT head negative 50-69 % right ICA stenosis: Cardiology consult Dr. Siddiqui appreciated, advised conservative management in the setting of possible TIA/ CVA Time Spent 55 minutes Advanced Care planning time 20 mts Patient is full code Awaiting Neurology consultation Plan discussed with: Patient Date of Service: Nov 23, 2024 Billing Provider: EDUARDO CESPEDES MD Common Visit Codes: [id number] INP/OBS CARE(HIGH) EDUARDO CESPEDES MD Nov 23, 2024 12:19
--- NOTE | 2024-11-23 16:19 | DVHSR ---
APPROVED REPORT EXAM: Two-dimensional and M-mode echocardiogram with Doppler and color Doppler. Blood Pressure: 130/50 mmHg INDICATION Evaluate cardiac function RISK FACTORS Height: 5' 1", Weight: 108 DIMENSIONS LVDd4.3 (3.8-5.7cm)LA (2D)3.3 (1.9-4.0cm)Aortic Root2.8 (2.0-3.7cm) LVDs2.9 (2.5-4.0cm)LA (MM) (1.9-4.0cm)Aortic Cusp Exc1.6 (1.5-2.0cm) EF (%) 60.0 (55-70%)Rt. Atrium3.1 (1.9-4.0cm)Asc. Aorta cm IVSd0.8 (0.7-1.1cm)RV (D) (1.8-2.4cm) PWd0.8 (0.7-1.1cm) Mitral Valve MitralMitral Stenosis E wave0.60m/sMV Mean GR.mmHg A wave0.90m/sMV Peak GR.mmHg E/A ratio0.72D MVAcm2 Aortic Valve Aortic ValveAortic Stenosis V10.90m/Jong Mean GR.6mmHg V21.70m/Jong Peak GR.12mmHg LVOT Diameter2.0 (1.8-2.4cm)Doppler AVA1.66cm2 AI P 1/2 Xroe767.66ms Pulmonic Valve V20.70m/s Tricuspid Valve TR Velocity2.30m/s [id number] Conclusion Technically good study sinus rhythm. Normal chamber sizes. Valves are normal. EF of 60% with normal RV function. Mild AI. Mild TR. No pericardial effusion masses or vegetations.
--- NOTE | 2024-11-23 22:34 | DVHINCON2 ---
Date of service: Nov 23, 2024 Referring Physician Rach Meyers for Consultation Evaluation for acute dizziness with history of stroke History of Present Illness Ms. Gibson is a 74 years old right-handed female with a history of hypertension, dyslipidemia, chronic stroke with residual left-sided weakness me, she came [facility] on 11[facility]/2024 with a complaint of dizziness, at that time, she is alert, fully oriented, with her son's interpretation, she provided the following history Since 11/17/2024, the patient has progressive intermittent dizziness, where she has unsteadiness, spinning sensation, mild nausea no matter when he is still in bed, sitting, standing or walking, the symptoms persist for 1 hour longer, and happened a few times a day, she has general weakness but denies associated focal weakness numbness, she has not had similar problems previously Fifteen years ago, the patient developed left-sided weakness, and she was said to have stroke, at home she takes aspirin 81 mg daily, and the cholesterol medication, according to our record, Lipitor 20 mg daily CBC, 11/20/2024: Unremarkable BMP, 11/20/2024: Unremarkable HGB A1c, 11/21/2024: 5.4 TG/HDL/LDL/HDL, 11/21/2024: 80/120/55/53 TSH, 11/21/2024: 1.51 Carotid Doppler, 11/20/24: 50-69% RIGHT ICA NARROWING. LESS THAN 50% LEFT ICA NARROWING CT head, 11/20/2024: No CT evidence of an acute intracranial abnormality Past Medical History Hypertension, dyslipidemia, stroke with left-sided weakness Past Surgical History No surgeries Family History: Patient reports no known family medical history. Family History Cancer Social History She denies a history of tobacco smoking, drug or alcohol abuse Allergies: Coded Allergies: NO KNOWN ALLERGIES (Unverified , 11/20/24) Home Meds Reported Medications Aspirin (Aspir-81) 81 Mg Tab, 1 TAB PO DAILY, #30 TAB 5 Refills 11/20/24 Amlodipine Besylate (NORVASC TABLET) 5 Mg Tb, 1 TAB PO DAILY, #30 TAB 5 Refills 11/20/24 Atorvastatin Calcium (ATORVASTATIN CALCIUM) 20 Mg Tab, 1 TAB PO DAILY, #30 TAB 5 Refills 11/20/24 Review of Systems As above, the other systems are negative Vital Signs Vital Signs Date Time Temp Pulse Resp B/P (MAP) Pulse Ox O2 Delivery O2 Flow Rate FiO2 11/23/24 20:57 98.2 66 17 116/75 (89) 96 98.2 11/23/24 20:20 Room Air* 0 21 Physical Exam GENERAL EXAM: General: the patient is well developed and nourished. No acute distress. HEENT: Normocephalic, neck is supple, no carotid bruits. No mass. RESPIRATORY: Normal respiratory effort with symmetrical lung expansion. Lungs clear to auscultation. CARDIOVASCULAR: Regular rate and rhythm with no murmurs. S1, S2. ABDOMEN: Soft, nontender, normal bowel sound MUSCULOSKELETAL EXAM: Tenderness to palpation both shoulders NEUROLOGICAL: MENTAL STATUS: Awake and alert. Oriented to person, place, time and general circumstances. Able to give personal history. SPEECH, LANGUAGE, HIGHER CORTICAL FUNCTION: no aphasia or dysathria. CRANIAL NERVES: #2: Intact visual archer to confrontation. The optic discs were sharp. #3,4,6: Pupils are equal, round and reactive. EOMs full and conjugate.No nystagmus. #5: Facial sensation intact in all three divisions bilaterally. Mandibular strength intact. #7: Mild left facial weakness of upper motor neuron pattern #8: Hearing grossly normal to voice. #9,10: Uvula and soft palate rise in the midline. Swallow and voice are normal. #11: Trapezius and sternomastoid strength intact bilaterally. #12: Tongue midline. No fasciculations or atrophy. SENSATION: Sensation to touch and pinprick is normal. MOTOR: Normal tone in the upper and lower extremity. Normal muscle bulk. No fasciculations. No abnormal movements or posturing. Muscle strength of the major groups in the extremities is 5/5, the left extremities were weaker, there is left arm drift REFLEXES: Deep tendon reflexes are symmetrical. No pathological reflexes. CEREBELLAR/COORDINATION: Finger to nose is normal bilaterally. GAIT/STATION: deferred. Labs/Diagnostic Data Labs Test 11/23/24 21:34 11/21/24 13:07 11/20/24 20:17 11/20/24 14:41 Range/Units POC Glucose 96 70-106 mg/dl Hemoglobin A1c 5.4 <5.7 % A1C Magnesium Level 2.5 1.6-2.6 mg/dL Triglycerides Level 80 < 150 mg/dL Cholesterol Level 120 < 200 mg/dL LDL Cholesterol 55 < 100 mg/dL HDL Cholesterol 53 40-59 mg/dL Thyroid Stimulating Hormone (TSH) 1.51 0.55-4.78 uIU/mL Troponin I High Sensitivity 3 L </=34 ng/L Urine Color Light-yellow Yellow Urine Clarity Clear Clear Urine pH 6.0 5.0-9.0 Urine Specific [place] 1.013 1.001-1.035 Urine Protein Negative Negative Urine Ketones Trace Negative Urine Blood Negative Negative /uL Urine Nitrite Negative Negative Urine Bilirubin Negative Negative Urine Urobilinogen Normal Negative mg/dL Urine Leukocyte Esterase Negative Negative /uL Urine RBC 2 0 - 4 /hpf Urine Microscopic WBC < 1 0-5 /HPF Urine Squamous Epithelial Cells Few <5 /hpf Urine Bacteria None seen None Seen /hpf Urine Glucose Normal Normal mg/dL Test 11/20/24 11:39 Range/Units White Blood Count 5.9 4.4-10.8 10^3/uL Red Blood Count 4.52 4.0-5.20 10^6/uL Hemoglobin 14.0 12.2-16.2 g/dL Hematocrit 40.7 36.0-46.0 % Mean Corpuscular Volume 90.0 80.0-100.0 fL Mean Corpuscular Hemoglobin 30.9 28.0-32.0 pg Mean Corpuscular Hemoglobin Concent 34.4 32.0-36.0 g/dL Red Cell Distribution Width 12.5 11.8-14.3 % Platelet Count 255 140-450 10^3/uL Mean Platelet Volume 8.6 6.9-10.8 fL Neutrophils (%) (Auto) 61.5 37.0-80.0 % Lymphocytes (%) (Auto) 31.2 10.0-50.0 % Monocytes (%) (Auto) 6.2 0.0-12.0 % Eosinophils (%) (Auto) 0.7 0.0-7.0 % Basophils (%) (Auto) 0.4 0.0-2.0 % Neutrophils # (Auto) 3.6 1.6-8.6 10 ^3/uL Lymphocytes # (Auto) 1.8 0.4-5.4 10 ^3/uL Monocytes # (Auto) 0.4 0-1.3 10 ^3/uL Eosinophils # (Auto) 0 0-0.8 10 ^3/uL Basophils # (Auto) 0 0-0.2 10 ^3/uL Nucleated Red Blood Cells 0.1 % Prothrombin Time 10.0 9.3-11.8 sec Prothrombin Time INR 0.94 0.9-1.15 Sodium Level 145 136-145 mmol/L Potassium Level 3.3 L 3.5-5.1 mmol/L Chloride Level 107 98-107 mmol/L Carbon Dioxide Level 29 20-31 mmol/L Anion Gap 9 5-15 Blood Urea Nitrogen 6 L 9-23 mg/dL Creatinine 0.63 0.550-1.02 mg/dL Glomerular Filtration Rate Calc 94 >90 mL/min BUN/Creatinine Ratio 9.5 L 10.0-20.0 Serum Glucose 96 74-106 mg/dL Calcium Level 9.1 8.7-10.4 mg/dL Phosphorus Level 2.9 2.4-5.1 mg/dL Assessment Intermittent vertigo/unsteadiness ? Stroke/TIA Chronic stroke with residual left-sided weakness Plan/Recommendation Monitoring Supportive treatment Telemetry MRI head Aspirin 81 mg daily Lipitor 20 mg daily Up to chair Physical therapy This medical document was created using an electronic medical record system with [employer] dictation system. Although this document has been carefully reviewed, there may still be some phonetic and typographical errors. These areas are purely typographical due to imperfections of the software programs, and do not reflect any compromise in the patient's medical care. Plan discussed with: Patient, Son, Other CYNTHIA STEVENS MD Nov 23, 2024 22:34
[2024-11-23] MEDS ORDERED: LORazepam 2MG/ML-1ML VIAL IV PRN (23:15)
[2024-11-24] VITALS (8 sets, daily range): BP systolic 89–126; BP diastolic 49–78; PULSE 50–75; RESP 12–20; TEMP 97.6–98.9; O2SAT 95–97
--- NOTE | 2024-11-24 09:51 | DVH ---
EXAMINATION: MRI BRAIN HEAD WO CONTRAST INDICATION: CVA, vertigo COMPARISON: US CAROTID DUPLX W COLOR DOP on DOS: 11/20/24, CT HEAD WITHOUT CONTRAST on DOS: 11/20/24 TECHNIQUE: Multiplanar, multisequence magnetic resonance imaging of the brain was performed without the use of i ntravenous contrast. FINDINGS: No evidence of acute infarct. No intracranial hemorrhage. No mass effect. There is periventricular/deep white matter T2/FLAIR hyperintensity is nonspecific, but most commonly associated with chronic microvascular disease. The ventricles and sulci are normal in size for age. Clear basal cisterns. Flow voids in the major intracranial vessels are maintained. No abnormality of the orbits. Paranasal sinuses and mastoid air cells are clear. No abnormality of the visualized osseous structures and extracranial soft tissues. IMPRESSION: 1. No acute infarct, intracranial hemorrhage, mass effect, or hydrocephalus.
--- NOTE | 2024-11-24 13:38 | DVHPN2 ---
Reviewed: Care Plan, H&P, Labs, Medications, Previous Orders, Radiology Changes from previous H/P or p: No Changes Eyes: No Pain, No Vision change, No Conjunctivae inflammation, No Eyelid inflammation, No Other, No Redness ENT: No Ear pain, No Ear discharge, No Nose pain, No Nose discharge, No Nose congestion, No Mouth pain, No Mouth swelling, No Throat pain, No Throat swelling, No Other Cardiovascular: No Chest Pain, No Palpitations, No Orthopnea, No Paroxysmal Noc. Dyspnea, No Edema, No Lt Headedness, No Other Respiratory: No Cough, No Dry, No Shortness of breath, No SOB with excertion, No Wheezing, No Hemoptysis, No Pleuritic Pain, No Sputum, No Other Gastrointestinal: No Nausea, No Vomiting, No Abdominal Pain, No Diarrhea, No Constipation, No Melena, No Hematochezia, No Other Genitourinary: No Dysuria, No Frequency, No Incontinence, No Hematuria, No Retention, No Other Musculoskeletal: No other, No neck pain, No shoulder pain, No arm pain, No back pain, No hand pain, No leg pain, No foot pain Skin: No Rash, No Lesions, No Jaundice, No Bruising, No Other Objective Vitals Vital Signs Date Time Temp Pulse Resp B/P (MAP) Pulse Ox O2 Delivery O2 Flow Rate FiO2 11/24/24 09:00 98.1 68 12 126/69 (88) 96 98.1 11/23/24 20:20 Room Air* 0 21 Intake/Output Intake and Output 11/24/24 07:00 Intake Total 1270 ml Balance 1270 ml Intake Oral 640 ml IV Total 630 ml # Voids 9 Medications Current Medications Medications Dose Ordered Sig/Jaya Route Start Time Stop Time Status Last Admin Dose Admin Sodium Chloride 1,000 ml @ 70 mls/hr [id number] IV 11/20/24 16:15 11/24/24 04:43 70 MLS/HR Atorvastatin Calcium 20 mg HS PO 11/20/24 22:00 11/23/24 22:06 20 MG Aspirin 81 mg DAILY PO 11/21/24 10:00 11/24/24 09:53 81 MG Nitroglycerin 0.4 mg Q5MINP PRN SL 11/20/24 16:15 Meclizine HCl 25 mg Q8HPRN PRN PO 11/20/24 16:15 Diagnostic Test (Pha) 1 strip ACHS 11/20/24 17:00 11/24/24 11:30 1 STRIP Insulin Human Regular ACHS SC 11/20/24 17:00 Dextrose 50 ml UD PRN IV 11/20/24 16:15 Lorazepam 1 mg ONCE PRN IV 11/23/24 23:15 Laboratory Results Laboratory Tests 11/20/24 11:39 Urinalysis Test 11/20/24 14:41 Urine Color Light-yellow (Yellow) Urine Clarity Clear (Clear) Urine pH 6.0 (5.0-9.0) Urine Specific [place] 1.013 (1.001-1.035) Urine Protein Negative (Negative) Urine Ketones Trace (Negative) Urine Blood Negative /uL (Negative) Urine Nitrite Negative (Negative) Urine Bilirubin Negative (Negative) Urine Urobilinogen Normal mg/dL (Negative) Urine Leukocyte Esterase Negative /uL (Negative) Urine RBC 2 /hpf (0 - 4) Urine Microscopic WBC < 1 /HPF (0-5) Urine Squamous Epithelial Cells Few /hpf (<5) Urine Bacteria None seen /hpf (None Seen) Urine Glucose Normal mg/dL (Normal) Labs and/or images reviewed: Labs reviewed by me, Image(s) reviewed by me Assessment/Plan Assessment/Plan Acute dizziness rule out stroke versus TIA: Neurology consult for Dr. 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 Siddiqui appreciated, advised conservative management in the setting of possible TIA/ CVA Time Spent 55 minutes Advanced Care planning time 20 mts Patient is full code Possible discharge Tue Plan discussed with: Patient Date of Service: Nov 24, 2024 Billing Provider: EDUARDO CESPEDES MD Common Visit Codes: [id number] INP/OBS CARE(HIGH) EDUARDO CESPEDES MD Nov 24, 2024 13:38
--- NOTE | 2024-11-24 16:30 | DVHPN2 ---
Consult Progress Note Date Seen: Nov 24, 2024 Subjective Review of Systems: CVS:Normal, RESPIRATORY:Normal, NEURO:Normal Other Systems: Denies any neurological symptoms Objective vital signs Vital Sign Date Time Temp Pulse Resp B/P (MAP) Pulse Ox O2 Delivery O2 Flow Rate FiO2 11/24/24 13:00 98.4 75 16 117/66 (83) 96 98.4 11/24/24 08:10 Room Air* 0 21 Total Intake and Output 11/23/24 11/23/24 11/24/24 15:00 23:00 07:00 Intake Total 240 ml 1030 ml Balance 240 ml 1030 ml medications Current Medications Medications Dose Ordered Sig/Jaya Route Start Time Stop Time Status Last Admin Dose Admin Sodium Chloride 1,000 ml @ 70 mls/hr [id number] IV 11/20/24 16:15 11/24/24 04:43 70 MLS/HR Atorvastatin Calcium 20 mg HS PO 11/20/24 22:00 11/23/24 22:06 20 MG Aspirin 81 mg DAILY PO 11/21/24 10:00 11/24/24 09:53 81 MG Nitroglycerin 0.4 mg Q5MINP PRN SL 11/20/24 16:15 Meclizine HCl 25 mg Q8HPRN PRN PO 11/20/24 16:15 Diagnostic Test (Pha) 1 strip ACHS 11/20/24 17:00 11/24/24 11:30 1 STRIP Insulin Human Regular ACHS SC 11/20/24 17:00 Dextrose 50 ml UD PRN IV 11/20/24 16:15 Lorazepam 1 mg ONCE PRN IV 11/23/24 23:15 Examination: LUNGS:Normal, CVS:Normal, NEURO:Abnormal (Left facial droop. A&O x 3) laboratory and microbiology Laboratory Tests 11/20/24 11:39 Test 11/20/24 11:39 Range/Units Serum Glucose 96 74-106 mg/dL Problem List/Assessment/Plan Problem List/Assessment/Plan Right ICA narrowing 50-69%, moderate degree CVA x2 with left-sided deficit Acute CVA ruled out Vertigo Hypertension Dyslipidemia Hypokalemia History of Beltrán's palsy Hard of hearing Plan/Recommendation (Dr. Siddiqui) Transthoracic echocardiogram revealed LVEF 60% with normal RV function. Carotid Doppler imaging revealed 50-69% right ICA narrowing, moderate degree of stenosis. Continue lipid-lowering agent and single-antiplatelet therapy. Continue neurology recommendations. Consider blood work as inpatient. There is no further cardiac work-up indicated at this time. Kindly re-consult if necessary. Thank you for allowing us to care for this patient. This medical document was created using an electronic medical record system with voice recognition software and computerized dictation system. Although this document has been carefully reviewed, there might still be some phonetic and typographical errors. Occasional wrong-word or ``sound-alike substitutions may have occurred due to the inherent limitations of voice recognition software. These areas are purely typographical due to imperfections of the software programs and do not reflect any compromise in the patient's medical care. Please read the chart carefully and recognize, using context, where these substitutions have occurred. Plan discussed with: Patient, Other Dietary Evaluation Review Comments: continuw current care of plan monitor PO intake to meet 100% of her needs Expected Outcomes/Goals: maintained BW Date of Service: Nov 24, 2024 Billing Provider: NETTA BOWIE Cardiology Common Codes: [id number] HOSP CARE(High NETTA BOWIE Nov 24, 2024 16:30
[2024-11-24 17:56] LABS: Alanine Aminotransferase 19 U/L (7-40); Albumin 4.2 g/dL (3.2-4.8); Alkaline Phosphatase 101 U/L (46-116); Anion Gap 8 (5-15); BUN/Creatinine Ratio 13.4 (10.0-20.0); Blood Urea Nitrogen 9 mg/dL (9-23); Calcium 9.3 mg/dL (8.7-10.4); Carbon Dioxide 29 mmol/L (20-31); Chloride 107 mmol/L (98-107); Glucose 86 mg/dL (74-106); Potassium 4.4 mmol/L (3.5-5.1); Sodium 144 mmol/L (136-145); Total Protein 6.5 g/dL (5.7-8.2)
[2024-11-24 17:57] LABS: Bilirubin, Total 1.3 mg/dL (0.2-1.0)
[2024-11-24] MEDS: ATORVASTATIN 20 MG TAB PO SCH (21:26)
--- NOTE | 2024-11-24 23:13 | DVHPN2 ---
Progress Note - Dictate Date Seen: Nov 24, 2024 Medical Necessity Reason Pt with a Central, PICC or Fol: No Subjective Ms. Arthur is a 74 years old right-handed female with a history of hypertension, dyslipidemia, chronic stroke with residual left-sided weakness me, she came to the [facility] on 11/20/2024 with a complaint of dizziness I have seen examined the patient, I have talked to her nurse, she is doing fine, no new complaint, but still has dizziness/spinning sensation No change on physical examination at that time, she is alert, fully oriented, with her son's interpretation, she provided the following history CBC, 11/20/2024: Unremarkable BMP, 11/20/2024: Unremarkable HGB A1c, 11/21/2024: 5.4 TG/HDL/LDL/HDL, 11/21/2024: 80/120/55/53 TSH, 11/21/2024: 1.51 Carotid Doppler, 11/20/24: 50-69% RIGHT ICA NARROWING. LESS THAN 50% LEFT ICA NARROWING CT head, 11/20/2024: No CT evidence of an acute intracranial abnormality MRI head, 11/24/2024: No acute infarct, intracranial hemorrhage, mass effect, or hydrocephalus vital signs Vital Sign Date Time Temp Pulse Resp B/P (MAP) Pulse Ox O2 Delivery O2 Flow Rate FiO2 11/24/24 20:53 70 16 94/49 (64) 96 11/24/24 20:52 98.9 98.9 11/24/24 20:09 Room Air* 0 21 Total Intake and Output 11/23/24 11/23/24 11/24/24 15:00 23:00 07:00 Intake Total 240 ml 1030 ml Balance 240 ml 1030 ml medications Current Medications Medications Dose Ordered Sig/Jaya Route Start Time Stop Time Status Last Admin Dose Admin Sodium Chloride 1,000 ml @ 70 mls/hr [id number] IV 11/20/24 16:15 11/24/24 04:43 70 MLS/HR Aspirin 81 mg DAILY PO 11/21/24 10:00 11/24/24 09:53 81 MG Nitroglycerin 0.4 mg Q5MINP PRN SL 11/20/24 16:15 Meclizine HCl 25 mg Q8HPRN PRN PO 11/20/24 16:15 Diagnostic Test (Pha) 1 strip ACHS 11/20/24 17:00 11/24/24 22:00 1 STRIP Insulin Human Regular ACHS SC 11/20/24 17:00 Dextrose 50 ml UD PRN IV 11/20/24 16:15 Lorazepam 1 mg ONCE PRN IV 11/23/24 23:15 Atorvastatin Calcium 40 mg HS PO 11/24/24 22:00 11/24/24 21:26 40 MG objective General: the patient is well developed and nourished. No acute distress. MUSCULOSKELETAL EXAM: Tenderness to palpation both shoulders MENTAL STATUS: Awake and alert. Oriented to person, place, time and general circumstances. Able to give personal history. SPEECH, LANGUAGE, HIGHER CORTICAL FUNCTION: no aphasia or dysathria. CRANIAL NERVES: Pupils are equal, round and reactive. EOMs full and conjugate.No nystagmus. Facial sensation intact in all three divisions bilaterally. Mandibular strength intact. Mild left facial weakness of upper motor neuron pattern. Tongue midline. No fasciculations or atrophy. SENSATION: Sensation to touch and pinprick is normal. MOTOR: Normal tone in the upper and lower extremity. Normal muscle bulk. No fasciculations. No abnormal movements or posturing. Muscle strength of the major groups in the extremities is 5/5, the left extremities were weaker, there is left arm drift REFLEXES: Deep tendon reflexes are symmetrical. No pathological reflexes. CEREBELLAR/COORDINATION: Finger to nose is normal bilaterally. GAIT/STATION: deferred. laboratory and microbiology Laboratory Tests 11/24/24 17:10 11/20/24 11:39 Test 11/24/24 17:10 Range/Units Serum Glucose 86 74-106 mg/dL Problem List Intermittent vertigo/unsteadiness, etiology unclear Chronic stroke with residual left-sided weakness Assessment/Plan Monitoring Supportive treatment Telemetry Aspirin 81 mg daily Lipitor 20 mg daily Up to chair Physical therapy This medical document was created using an electronic medical record system with [employer] dictation system. Although this document has been carefully reviewed, there may still be some phonetic and typographical errors. These areas are purely typographical due to imperfections of the software programs, and do not reflect any compromise in the patient's medical care. Prognosis poor Dietary Evaluation Review Comments: continuw current care of plan monitor PO intake to meet 100% of her needs Expected Outcomes/Goals: maintained BW Plan discussed with: Patient, Other Total Time (mins): 35 CYNTHIA STEVENS MD Nov 24, 2024 23:13
[2024-11-25 00:47] VITALS: BP 121/59; PULSE 63; RESP 14; TEMP 98.7; O2SAT 96
[2024-11-25 05:00] VITALS: BP 112/57; PULSE 57; RESP 18; TEMP 98.4; O2SAT 98
[2024-11-25 08:00] VITALS: PULSE 54
[2024-11-25 09:00] VITALS: BP 137/86; PULSE 60; RESP 16; TEMP 98; O2SAT 96
--- NOTE | 2024-11-25 11:00 | DVHDS2 ---
Discharge Summary Date of Admission Nov 20, 2024 at 16:04 Date of Discharge: Nov 25, 2024 Admitting Diagnosis Dizziness Wounds: None Labs/Diagnostic Data: Laboratory Results Test 11/25/24 06:18 11/24/24 17:10 11/21/24 13:07 11/20/24 20:17 POC Glucose 94 mg/dl (70-106) Sodium Level 144 mmol/L (136-145) Potassium Level 4.4 mmol/L (3.5-5.1) Chloride Level 107 mmol/L (98-107) Carbon Dioxide Level 29 mmol/L (20-31) Anion Gap 8 (5-15) Blood Urea Nitrogen 9 mg/dL (9-23) Creatinine 0.67 mg/dL (0.550-1.02) Glomerular Filtration Rate Calc 93 mL/min (>90) BUN/Creatinine Ratio 13.4 (10.0-20.0) Serum Glucose 86 mg/dL (74-106) Calcium Level 9.3 mg/dL (8.7-10.4) Total Bilirubin 1.3 mg/dL (0.2-1.0) Aspartate Amino Transferase (AST) 23 U/L (13-40) Alanine Aminotransferase (ALT) 19 U/L (7-40) Alkaline Phosphatase 101 U/L (46-116) Total Protein 6.5 g/dL (5.7-8.2) Albumin 4.2 g/dL (3.2-4.8) Hemoglobin A1c 5.4 % A1C (<5.7) Magnesium Level 2.5 mg/dL (1.6-2.6) Triglycerides Level 80 mg/dL (< 150) Cholesterol Level 120 mg/dL (< 200) LDL Cholesterol 55 mg/dL (< 100) HDL Cholesterol 53 mg/dL (40-59) Thyroid Stimulating Hormone (TSH) 1.51 uIU/mL (0.55-4.78) Troponin I High Sensitivity 3 ng/L (</=34) Test 11/20/24 14:41 11/20/24 11:39 Urine Color Light-yellow (Yellow) Urine Clarity Clear (Clear) Urine pH 6.0 (5.0-9.0) Urine Specific [place] 1.013 (1.001-1.035) Urine Protein Negative (Negative) Urine Ketones Trace (Negative) Urine Blood Negative /uL (Negative) Urine Nitrite Negative (Negative) Urine Bilirubin Negative (Negative) Urine Urobilinogen Normal mg/dL (Negative) Urine Leukocyte Esterase Negative /uL (Negative) Urine RBC 2 /hpf (0 - 4) Urine Microscopic WBC < 1 /HPF (0-5) Urine Squamous Epithelial Cells Few /hpf (<5) Urine Bacteria None seen /hpf (None Seen) Urine Glucose Normal mg/dL (Normal) White Blood Count 5.9 10^3/uL (4.4-10.8) Red Blood Count 4.52 10^6/uL (4.0-5.20) Hemoglobin 14.0 g/dL (12.2-16.2) Hematocrit 40.7 % (36.0-46.0) Mean Corpuscular Volume 90.0 fL (80.0-100.0) Mean Corpuscular Hemoglobin 30.9 pg (28.0-32.0) Mean Corpuscular Hemoglobin Concent 34.4 g/dL (32.0-36.0) Red Cell Distribution Width 12.5 % (11.8-14.3) Platelet Count 255 10^3/uL (140-450) Mean Platelet Volume 8.6 fL (6.9-10.8) Neutrophils (%) (Auto) 61.5 % (37.0-80.0) Lymphocytes (%) (Auto) 31.2 % (10.0-50.0) Monocytes (%) (Auto) 6.2 % (0.0-12.0) Eosinophils (%) (Auto) 0.7 % (0.0-7.0) Basophils (%) (Auto) 0.4 % (0.0-2.0) Neutrophils # (Auto) 3.6 10 ^3/uL (1.6-8.6) Lymphocytes # (Auto) 1.8 10 ^3/uL (0.4-5.4) Monocytes # (Auto) 0.4 10 ^3/uL (0-1.3) Eosinophils # (Auto) 0 10 ^3/uL (0-0.8) Basophils # (Auto) 0 10 ^3/uL (0-0.2) Nucleated Red Blood Cells 0.1 % Prothrombin Time 10.0 sec (9.3-11.8) Prothrombin Time INR 0.94 (0.9-1.15) Phosphorus Level 2.9 mg/dL (2.4-5.1) Other Laboratory Tests 11/24/24 17:10 11/20/24 11:39 Brief Hx & Hospital Course: 74-year-old female with a history of diabetes hypertension hypercholesterolemia CVA 10 years ago with a left-sided weakness came in complaining of dizziness. CT head was negative MRI brain was negative for any acute changes carotid ultrasound showed 50-69 percent ICA stenosis cardiology consult by Dr. Siddiqui advised conservative management. Seen by Neurology Dr. Briggs Advised aspirin Lipitor and Antivert. The patient feels better received physical therapy being discharged home prescription transmitted to the [facility]. Consults/Reason for consult Cardiology Neurology Operations or Procedures CT head Carotid ultrasound Echocardiogram Condition at Discharge: Fair Final Diagnosis/Problems List Acute dizziness rule out stroke versus TIA: Neurology consult for Dr. 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 Siddiqui appreciated, advised conservative management in the setting of possible TIA/ CVA Discharge Disposition: Home Discharge Instruct/Medications Diet: Cardiac 2g Na,low cholest Activity: Light activity Follow Up/Referral: Resume all previous home medications Follow up with the primary Dr Medications: Aspirin Lipitor Antivert Transmitted to [facility] Scheduled Amlodipine Besylate (Norvasc Tablet), 1 TAB PO DAILY, (Reported) Aspirin (Aspir-81), 1 TAB PO DAILY, (Reported) Atorvastatin Calcium (Atorvastatin Calcium), 1 TAB PO DAILY, (Reported) 39 (Time taken for discharge summary 39 minutes) Discharge Statement: "Patient was advised to return to the ER or call 911 if any headaches, dizziness, shortness of breath, chest pain, abdominal pain, bleeding, fevers, or worsening of medical condition. Patient was counseled about treatment plan, medications, possible side effects, patientverbalized understanding. All questions were answered to the best of my ability. This discharge took greater then 30 minutes in planning, reviewing documentation, counseling the patient, and discussing with other team members." ASSESSMENT ASSESSMENT Hospital Course Uneventful Assessment Acute dizziness rule out stroke versus TIA: Neurology consult for Dr. 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 Siddiqui appreciated, advised conservative management in the setting of possible TIA/ CVA Date of Service: Nov 25, 2024 Billing Provider: EDUARDO CESPEDES MD Common Visit Codes: [id number] DISCH DAY >30min EDUARDO CESPEDES MD Nov 25, 2024 11:00
[2024-11-25] MEDS ORDERED: ATOR-507 PO (11:30)
[2024-11-25] MEDS ORDERED: ASPI1TAB19 PO (11:30)
[2024-11-25] MEDS ORDERED: MECL25CH85 PO (11:30)
[2024-11-25 12:15] VITALS: TEMP 36.7
== END 2024-11-25 12:45 | disposition home or self-care (01) | DRG 641 ==
LOC: ER 10:48 → OVERFLOW 16:04 → TELE-WESTW 23:11
PROVIDERS: ADMIT Family Medicine; ATTEND Family Medicine
DX: E87.6 Hypokalemia (principal); I69.354 Hemiplegia and hemiparesis following cerebral infarction affecting left non-dominant side; I10 Essential (primary) hypertension; I25.10 Atherosclerotic heart disease of native coronary artery without angina pectoris; G90.89 Other disorders of autonomic nervous system; E11.9 Type 2 diabetes mellitus without complications; E78.00 Pure hypercholesterolemia, unspecified; Z79.899 Other long term (current) drug therapy
CPT/HCPCS: 36415; 70450; 70551; 80048; 80053; 80061; 81001; 82962; 83036; 83735; 84100; 84443; 84484; 85025; 85610; 92610; 93005; 93306; 93886; 96360; 97110; 97116; 97163; 97530; 99291; G0378